=== PATIENT | female | born 1965 | race American Indian/Alaskan Native ===

== ENCOUNTER 2020-07-23 09:20 | Outpatient (CLI) | payer MEDICARE ==
--- NOTE | 2020-07-23 12:27 | Mammography Report ---
RIGHT DIAGNOSTIC MAMMOGRAM INDICATION: Status post stereotactic biopsy of right upper outer breast calcifications. COMPARISON: 10/31/2020, 03/06/2019. FINDINGS: Right breast CC and ML projection mammograms were obtained. These document a biopsy marker located slightly lateral (8 mm) to the site of previously identified calcifications in the right uppe r outer breast. Interval decrease in number of calcifications following the biopsy. IMPRESSION: Right breast mammographic images documenting a biopsy marker located slightly lateral (8 mm) to the s ite of right upper outer breast stereotactic biopsy of calcifications. BI-RADS Category 4: Suspicious for Malignancy. Signer Name: Salvador Orourke MD Signed: 07/23/2020 12:18 PM Workstation Name: [id number]
--- NOTE | 2020-07-23 13:45 | Mammography Report ---
PERCUTANEOUS STEREOTACTIC-GUIDED RIGHT BREAST BIOPSY WITH MARKER PLACEMENT HISTORY: Right breast calcifications. CONSENT: Technique, risks and alternatives were discussed with the patient and informed written conse nt obtained. PROCEDURE: The patient was placed in the prone position on the Siemens biopsy table. The calcifications in the r ight breast at the 10:00 position were targeted mammographically. Vessel Scrapper and stereo pair images were a cquired to generate the computer-derived coordinates for targeting. The skin overlying the chosen bio psy site were cleansed with Betadine. The skin and superficial soft tissues were anesthetized with a small amount of buffered 1% lidocaine. The deeper soft tissues were anesthetized with buffered 1% l idocaine with epinephrine. A small dermatotomy was created through which the mammotome biopsy device was placed. Pre and post fi re stereo pair images were acquired to confirm appropriate needle trajectory. Using vacuum assistance , multiple core specimen samples were acquired. A post procedure specimen radiograph confirmed calcif ications within core specimen samples. A biopsy marker was deposited at the biopsy site, and appropr iate biopsy marker deployment confirmed via a stereo pair image. Manual pressure was applied at the biopsy site to achieve hemostasis. The incision margins were appro ximated with Steri-Strips. Postprocedure care instructions were administered in both verbal and writt en forms. The patient voiced understanding and departed the [facility] in stable, satisfactory con dition. IMPRESSION Technically successful stereotactic biopsy of right breast calcifications at the 10:00 position. The biopsy marker is located slightly lateral (8 mm) to the biopsy site. An addendum will be added to this report once pathology results are available. Signer Name: Salvador Orourke MD Signed: 07/23/2020 1:40 PM Workstation Name: [id number]
== END 2020-07-23 09:21 | disposition home or self-care (01) ==
LOC: SPVWC 09:20
PROVIDERS: ATTEND Surgery
DX: R92.1 Mammographic calcification found on diagnostic imaging of breast (principal); R92.8 Other abnormal and inconclusive findings on diagnostic imaging of breast; D24.1 Benign neoplasm of right breast; N64.89 Other specified disorders of breast
CPT/HCPCS: 19081; 77065; 88305; A4648

== ENCOUNTER 2021-02-06 10:26 | Outpatient (CLI) | payer MEDICARE ==
--- NOTE | 2021-02-06 11:21 | Mammography Report ---
DIGITAL DIAGNOSTIC MAMMOGRAM WITH CAD, 02/06/2021 CLINICAL INFORMATION / INDICATION: Routine screening mammography. ABNORMAL MAMMO TECHNIQUE: Digital right 2D mammography was obtained in the craniocaudal and mediolateral oblique pr ojections. This examination was interpreted with the benefit of Computer-Aided Detection analysis. COMPARISON: 07/03/2020 and 07/23/2020 FINDINGS: Breast Density: The breasts are heterogeneously dense, which may obscure small masses. . Calcifications noted on study from 07/03/2020 were partially removed. Residual calcifications appear unchanged from the postbiopsy mammogram dated 07/23/2020. Biopsy marking clip is located lateral and s uperior to the calcifications. IMPRESSION: Calcifications in the right breast were partially removed at previous biopsy. Residual ca lcifications in the upper outer quadrant are unchanged from 07/23/2020. Biopsy marking clip is located superior and lateral to the calcifications. Follow up recommendation: Back to schedule. BI-RADS Category 2: Benign. A "normal" or negative report should not discourage follow up or biopsy of a clinically significant f inding. A written summary of these findings will be mailed to the patient. The patient will be entered into a mammography reporting system which will generate a reminder letter for the patient's next appointmen t at the appropriate interval. The [employer] recommends yearly mammograms starting at age 40 and continuing as l david as a woman is in good health. Breast MRI is recommended for women with an approximate 20-25% or greater lifetime risk of breast cancer, including women with a strong family history of breast or ova rolf cancer or who have been treated for Hodgkin's disease. Signer Name: Tanner Vásquez MD Signed: 02/06/2021 11:16 AM Workstation Name: [id number]
== END 2021-02-06 10:27 | disposition home or self-care (01) ==
LOC: SPVWC 10:26
PROVIDERS: ATTEND Surgery
DX: R92.1 Mammographic calcification found on diagnostic imaging of breast (principal)